=== PATIENT | male | born 1995 | race Two or more races ===

== ENCOUNTER 2022-06-13 11:29 | Emergency (ER) | payer SELFPAY ==
[~2022-06-13] VITALS: Ht 170.2 cm; Wt 94.5 kg
[2022-06-13 13:00] VITALS: BP 135/70
[2022-06-13] MEDS ORDERED: DICL75TA2 PO (16:46)
== END 2022-06-13 17:35 | disposition home or self-care (01) ==
LOC: ER 11:38
DX: S80.02XA Contusion of left knee, initial encounter (principal); M92.522 Juvenile osteochondrosis of tibia tubercle, left leg; X58.XXXA Exposure to other specified factors, initial encounter; Y93.89 Activity, other specified; Y92.89 Other specified places as the place of occurrence of the external cause; Y99.8 Other external cause status
CPT/HCPCS: 73562

== ENCOUNTER → 2025-03-07 | Day surgery (SDC) | payer OTHER ==
[2025-03-06 09:09] LABS: Urine Protein, UAD Negative (Negative)
[2025-03-06 09:14] LABS: Alanine Aminotransferase 35 U/L (7-40); Alkaline Phosphatase 88 U/L (46-116); Anion Gap 8 (5-15); BUN/Creatinine Ratio 8.3 (10.0-20.0); Bilirubin, Total 1.2 mg/dL (0.2-1.0); Blood Urea Nitrogen 9 mg/dL (9-23); Calcium 9.9 mg/dL (8.7-10.4); Carbon Dioxide 27 mmol/L (20-31); Chloride 104 mmol/L (98-107); Glucose 98 mg/dL (74-106); Potassium 4.4 mmol/L (3.5-5.1); Sodium 139 mmol/L (136-145); Total Protein 7.5 g/dL (5.7-8.2)
[2025-03-06 09:18] LABS: Albumin 5.0 g/dL (3.2-4.8)
[2025-03-06 09:23] LABS: INR 0.98 (0.9-1.15); Partial Thromboplastin Time 29.6 SEC (24.5-34.5); Prothrombin Time 10.4 sec (9.3-11.8)
[2025-03-06 09:55] LABS: Hematocrit 48.3 % (41.0-53.0); Hemoglobin 17.0 g/dL (13.5-17.5); Mean Corpuscular Hemoglobin 28.3 pg (28.0-32.0); Mean Corpuscular Volume 80.3 fL (80.0-100.0); Nucleated Red Blood Cells % 0.2 %
[~2025-03-07] VITALS: Ht 167.6 cm; Wt 99.8 kg
[~2025-03-07] MED LIST: CHOL25CH3 PO; CLOB0.055 TOP; FLUO20TA42 PO; LIDOCAINE 2% (LOCAL ANESTH.) PF 5ml SDV ONE; MELO7.5T7 PO; METOCLOPRAMIDE HCL 5MG/ml INJ 2ml VIAL ONE; MULT-1018 PO; ONDANSETRON HCL 4 MG/2 ML VIAL ONE; PROPOFOL 10 MG/ML 20 ML IV ONE; PSYL0.5223 PO
[2025-03-07 12:20] VITALS: PULSE 90; RESP 16; TEMP 98.4; O2SAT 99
--- NOTE | 2025-03-07 12:28 | DVHOP2 ---
Operative Report DATE OF OPERATION: 03/07/25 PROCEDURE: Diagnostic Colonoscopy. PREOPERATIVE INDICATION: The patient is a 29 -year-old male undergoing colonoscopy for evaluation of rectal bleeding POSTOPERATIVE DIAGNOSES: 1. Trace to 1+ internal hemorrhoids otherwise completely normal colonoscopy examination up to the cecum and terminal ileum PROCEDURE PERFORMED BY: Josias Abraham M.D. SCOPE: Olympus videocolonoscope. ASA CLASS: 2. PREOPERATIVE MEDICATIONS: Mac sedation, [facility] PROCEDURE IN DETAIL: After obtaining an informed consent, the patient was placed on left lateral decubitus position. He was then sedated with the above medications. A rectal examination was performed that was normal. The colonoscope was then passed through the anus into the rectosigmoid and through the descending, transverse, and ascending colon up to the cecum with visualization of the appendiceal orifice, base of the cecum and the ileocecal valve. The colonoscope was then withdrawn. The distal 5-10 cm of the terminal ileum were normal No polyps or masses were seen. There was no colitis or clear-cut diverticular disease On retroflexion and straight on view patient had trace to 1+ internal hemorrhoids The patient tolerated the procedure well without difficulty. WITHDRAWAL TIME: 6 minutes QUALITY OF THE PREP: [place] Bowel Prep score: 9. COMPLICATIONS : None SPECIMENS: None DISPOSITION: Stable D/C to home PLAN: 1. Repeat colonoscopy at age 46 years 2. Resume GI soft diet advance as tolerated 3. Local anorectal hemorrhoidal care 4. Outpatient follow up with me in 4-6 weeks to review results and discuss further management JOSIAS ABRAHAM MD Mar 07, 2025 12:28
[2025-03-07 12:30] VITALS: PULSE 76; RESP 12; O2SAT 99
[2025-03-07 12:50] VITALS: BP 111/65; PULSE 76; RESP 12; O2SAT 97
== END | disposition home or self-care (01) ==
LOC: GI 10:06
PROVIDERS: ATTEND Internal Medicine Gastroenterology
DX: K62.5 Hemorrhage of anus and rectum (principal); E66.3 Overweight; Z68.35 Body mass index [BMI] 35.0-35.9, adult; Z79.84 Long term (current) use of oral hypoglycemic drugs; Z79.899 Other long term (current) drug therapy
CPT/HCPCS: 36415; 45378; 80053; 81001; 85025; 85610; 85730; J2003; J2405; J2704; J2765; J7030